=== PATIENT | male | born 1960 | race Caucasian/White ===

== ENCOUNTER 2017-09-28 23:16 | Emergency (ER) | payer SELFPAY, BC ==
[2017-09-29] MEDS: IPRATROPIUM (NEB) 0.5 MG/2.5 ML AMP NEB (02:44)
[2017-09-29] MEDS: LEVALBUTEROL (NEB) 1.25 MG/0.5 ML AMP INH (02:44)
[2017-09-29] MEDS: predniSONE 20 MG TAB PO (02:52)
== END 2017-09-29 03:06 | disposition home or self-care (01) ==
LOC: E/R 23:16
DX: J45.901 Unspecified asthma with (acute) exacerbation (principal); Z87.891 Personal history of nicotine dependence
CPT/HCPCS: 94664; 99284-25